=== PATIENT | female | born 1955 | race Caucasian/White ===

== ENCOUNTER 2024-01-31 08:39 | Emergency (ER) | payer OTHER ==
[2024-01-31] MEDS ORDERED: Acetaminophen 500 MG TAB ONE (09:19)
== END 2024-01-31 09:49 | disposition home or self-care (01) ==
LOC: MADERS 08:39
DX: S29.011A Strain of muscle and tendon of front wall of thorax, initial encounter (principal); I10 Essential (primary) hypertension; E11.9 Type 2 diabetes mellitus without complications; W18.30XA Fall on same level, unspecified, initial encounter; Z79.82 Long term (current) use of aspirin; Z79.899 Other long term (current) drug therapy; Z79.84 Long term (current) use of oral hypoglycemic drugs